=== PATIENT | female | born 1995 | race American Indian/Alaskan Native ===

== ENCOUNTER 2018-02-12 15:06 | Emergency (ER) | payer SELFPAY ==
[2018-02-12] MEDS ORDERED: IBUPROFEN 200 MG TAB PO ONE (18:29)
[2018-02-12 18:30] LABS: Urine Blood TRACE (NEG); Urine Glucose NEGATIVE (NEG); Urine Protein NEGATIVE (NEG); Urine pH 5.5 (5.0-7.0)
[2018-02-12] MEDS ORDERED: HYDROCODONE/APAP 10/325 TAB ONE (18:30)
--- NOTE | 2018-02-12 18:40 | EDPHYS ---
Physician Documentation [facility] Name: Gail Vega Age: 22 yrs Sex: Female : 1995 Arrival Date: 02/12/2018 Time: 15:11 Bed 10 Private MD: ED Physician Jose Deluca HPI: 02/12 17:33 This 22 yrs old Other Female presents to ER via Ambulatory with complaints of Back Pain.kyle 17:33 The patient presents with pain that is acute. The symptoms are located in the low back. kyle Onset: The symptoms/episode began/occurred 1 day(s) ago. The pain radiates to the lumbar area. Associated signs and symptoms: The patient has no apparent associated signs or symptoms. The problem was sustained when bending over, from twisting. Modifying factors: The patient symptoms are alleviated by remaining still, the patient symptoms are aggravated by bending, movement, walking. Severity of symptoms: At their worst the symptoms were moderate, in the emergency department the symptoms are unchanged. The patient has not experienced similar symptoms in the past. BAR STAFF: 15:17 LMP N/A - Irregular menses hj Historical: - Allergies: 15:17 No Known Allergies; hj - Home Meds: 15:17 None [Active]; hj - PMHx: 15:17 None; hj - PSHx: 15:17 None; hj - Immunization history:: Last tetanus immunization: Flu vaccine is up to date. - Family history:: not pertinent. - Social history:: Smoking status: Patient/guardian denies using tobacco. ROS: 17:33 Constitutional: Negative for fever, chills, and weight loss, Eyes: Negative for injury, kyle pain, redness, and discharge, ENT: Negative for injury, pain, and discharge, Neck: Negative for injury, pain, and swelling, Cardiovascular: Negative for chest pain, palpitations, and edema, Respiratory: Negative for shortness of breath, cough, wheezing, and pleuritic chest pain, Abdomen/GI: Negative for abdominal pain, nausea, vomiting, diarrhea, and constipation, : Negative for injury, bleeding, discharge, and swelling, MS/Extremity: Negative for injury and deformity, Skin: Negative for injury, rash, and discoloration, Neuro: Negative for headache, weakness, numbness, tingling, and seizure, Psych: Negative for depression, anxiety, suicide ideation, homicidal ideation, and hallucinations, Allergy/Immunology: Negative for hives, rash, and allergies, Endocrine: Negative for neck swelling, polydipsia, polyuria, polyphagia, and marked weight changes, Hematologic/Lymphatic: Negative for swollen nodes, abnormal bleeding, and unusual bruising. 17:33 Back: Positive for decreased range of motion, pain at rest, of the lumbar area. Exam: 17:33 Constitutional: This is a well developed, well nourished patient who is awake, alert, kyle and in no acute distress. Head/Face: Normocephalic, atraumatic. Eyes: Pupils equal round and reactive to light, extra-ocular motions intact. Lids and lashes normal. Conjunctiva and sclera are non-icteric and not injected. Cornea within normal limits. Periorbital areas with no swelling, redness, or edema. ENT: Nares patent. No nasal discharge, no septal abnormalities noted. Tympanic membranes are normal and external auditory canals are clear. Oropharynx with no redness, swelling, or masses, exudates, or evidence of obstruction, uvula midline. Mucous membranes moist. Neck: Trachea midline, no thyromegaly or masses palpated, and no cervical lymphadenopathy. Supple, full range of motion without nuchal rigidity, or vertebral point tenderness. No Meningismus. Chest/axilla: Normal chest wall appearance and motion. Nontender with no deformity. No lesions are appreciated. Cardiovascular: Regular rate and rhythm with a normal S1 and S2. No gallops, murmurs, or rubs. Normal PMI, no JVD. No pulse deficits. Respiratory: Lungs have equal breath sounds bilaterally, clear to auscultation and percussion. No rales, rhonchi or wheezes noted. No increased work of breathing, no retractions or nasal flaring. Abdomen/GI: Soft, non-tender, with normal bowel sounds. No distension or tympany. No guarding or rebound. No evidence of tenderness throughout. Female : Normal external genitalia. Skin: Warm, dry with normal turgor. Normal color with no rashes, no lesions, and no evidence of cellulitis. MS/ Extremity: Pulses equal, no cyanosis. Neurovascular intact. Full, normal range of motion. Neuro: Awake and alert, GCS 15, oriented to person, place, time, and situation. Cranial nerves II-XII grossly intact. Motor strength 5/5 in all extremities. Sensory grossly intact. Cerebellar exam normal. Normal gait. Psych: Awake, alert, with orientation to person, place and time. Behavior, mood, and affect are within normal limits. 17:33 Back: pain, that is moderate, ROM is painful, normal spinal alignment noted, CVA tenderness, that is mild, muscle spasm, is appreciated in the lumbar area, left low back, left mid back, right mid back and right low back. Vital Signs: 15:17 BP 100 / 71; Pulse 98; Resp 18; Temp 97.7(TE); Pulse Ox 100% on R/A; Weight 113.4 kg; hj Height 5 ft. 4 in. (162.56 cm); Pain 8/10; 19:23 Pulse 95; Resp 18; Pulse Ox 100% on R/A; ao 15:17 Body Mass Index 42.91 (113.40 kg, 162.56 cm) hj MDM: 16:35 Patient medically screened. [facility] 17:34 Data reviewed: vital signs, nurses notes, radiologic studies, plain films. [facility] 02/12 18:12 Order name: Urine Dipstick--Ancillary (enter results); Complete Time: 18:40 02/12 18:12 Order name: Urine --Ancillary (enter results); Complete Time: 18:40 02/12 17:32 Order name: Urine Dipstick-Ancillary (obtain specimen); Complete Time: 18:19 [facility] 02/12 17:32 Order name: Lumbar Spine (3 Views) XRAY [facility] 02/12 17:32 Order name: Urine Test (obtain specimen); Complete Time: 18:19 [facility] Administered Medications: 18:18 Drug: Motrin 600 mg Route: PO; kb1 19:24 Follow up: Response: No adverse reaction ao 18:19 Drug: [place] 10 mg-325 mg 1 tabs Route: PO; kb1 19:24 Follow up: Response: No adverse reaction ao Disposition: 02/12/18 18:40 Discharged to Home. Impression: Low back pain, Obesity, unspecified. - Condition is Stable. - Discharge Instructions: Back Pain, Adult, Musculoskeletal Pain, Obesity, Back Injury Prevention, [id number], Back Pain, Adult, [id number], Obesity, [id number]. - Prescriptions for Ibuprofen 600 mg Oral Tablet - take 1 tablet by ORAL route every 8 hours As needed take with food; 21 tablet. Skelaxin 800 mg Oral Tablet - take 1 tablet by ORAL route every 6 hours As needed; 28 tablet. Tylenol- Codeine #3 300-30 mg Oral Tablet - take 2 tablets by ORAL route every 6 hours As needed; 26 tablet. - Medication Reconciliation Form, Thank You Letter, Antibiotic Education, Prescription Opioid Use, Work release form, Family Work Release form. - Follow up: Private Physician; When: 2 - 3 days; Reason: Recheck today's complaints, Continuance of care, Re-evaluation by your physician. - Problem is new. - Symptoms have improved. Signatures: Dispatcher [employer] EDJose Tyler MD MD cha Joaquin, Henry, RN Dario Rincon RN Yenny Malik RN RN kb1
--- NOTE | 2018-02-12 18:40 | ER ---
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 Transition of care: patient was not received from another setting of care. Onset of symptoms was February 12, 2018. Care prior to arrival: None. 15:15 Method Of Arrival: Ambulatory 15:15 Acuity: AMBERLY 4 hj Triage Assessment: 15:17 General: Appears in no apparent distress. uncomfortable, obese, Behavior is calm, hj cooperative, appropriate for age. Pain: Complains of pain in lumbar area. Musculoskeletal: Circulation, motion, and sensation intact. Capillary refill < 3 seconds. RN ENDOCRINOLOGY: 15:17 LMP N/A - Irregular menses Historical: - Allergies: 15:17 No Known Allergies; hj - Home Meds: 15:17 None [Active]; hj - PMHx: 15:17 None; hj - PSHx: 15:17 None; hj - Immunization history:: Last tetanus immunization: Flu vaccine is up to date. - Family history:: not pertinent. - Social history:: Smoking status: Patient/guardian denies using tobacco. Screenin:17 Abuse screen: Denies threats or abuse. Nutritional screening: No deficits noted. kb1 Tuberculosis screening: No symptoms or risk factors identified. Fall Risk None identified. Assessment: 18:16 Reassessment: Reports that she began to have lower back pain yesterday. General: kb1 Appears in no apparent distress. Behavior is calm, cooperative. Pain: Complains of pain in mid back "right above my butt". Neuro: Level of Consciousness is awake, alert, obeys commands, Oriented to person, place, time, situation. Cardiovascular: Patient's skin is warm and dry. Respiratory: Respiratory effort is even, unlabored, Respiratory pattern is regular, symmetrical. GI: No signs and/or symptoms were reported involving the gastrointestinal system. : No signs and/or symptoms were reported regarding the genitourinary system. Musculoskeletal: Range of motion: intact in all extremities. Injury Description: denies injury. Vital Signs: 15:17 BP 100 / 71; Pulse 98; Resp 18; Temp 97.7(TE); Pulse Ox 100% on R/A; Weight 113.4 kg; hj Height 5 ft. 4 in. (162.56 cm); Pain 8/10; 19:23 Pulse 95; Resp 18; Pulse Ox 100% on R/A; ao 15:17 Body Mass Index 42.91 (113.40 kg, 162.56 cm) ED Course: 15:11 Patient arrived in ED. rg4 15:16 Triage completed. 15:17 Arm band placed on left wrist. 16:35 Jose Deluca MD is Attending Physician. [facility] 17:16 Yenny Leon, RN is Primary Nurse. kb1 18:17 Patient has correct armband on for positive identification. Call light in reach. kb1 sitting in chair, wheels locked. 18:59 Patient moved to radiology via wheelchair. jr1 19:00 Lumbar Spine (3 Views) XRAY In Process Unspecified. EDMS 19:10 Report given to Dario LOPEZ. kb1 19:10 No provider procedures requiring assistance completed. Patient did not have IV access kb1 during this emergency room visit. 19:12 Dario Dale RN is Primary Nurse. ao Administered Medications: 18:18 Drug: Motrin 600 mg Route: PO; kb1 19:24 Follow up: Response: No adverse reaction ao 18:19 Drug: [place] 10 mg-325 mg 1 tabs Route: PO; kb1 19:24 Follow up: Response: No adverse reaction ao Outcome: 18:40 Discharge ordered by . kyle 19:23 Discharged to home ambulatory. ao 19:23 Condition: stable 19:23 Discharge instructions given to patient, Instructed on discharge instructions, follow up and referral plans. Demonstrated understanding of instructions, follow-up care, medications, Prescriptions given X 3. 19:24 Patient left the ED. ao Signatures: Dispatcher [employer] EDMS Jose Deluca MD MD cha Ringgold, Jennifer jr1 Vishnu Handy RN RN Dario Dale RN RN ao Garcia, Rubi 4 Yenny Leon RN RN kb1 Corrections: (The following items were deleted from the chart) 15:20 15:17 Pulse 98bpm; Resp 18bpm; Pulse Ox 100% RA; Temp 97.7F Temporal; 113.4 kg; Height hj 5 ft. 4 in.; BMI: 42.9; Pain 8/10; hj
--- NOTE | 2018-02-12 19:19 | RAD REPORT ---
EXAM DESCRIPTION: RAD - Lumbar Spine 3 Views - 02/12/2018 7:06 pm CLINICAL HISTORY: Back pain FINDINGS: The alignment of the lumbar spine is satisfactory. No fracture or dislocation is seen. No significant bone or joint abnormality seen
== END 2018-02-12 19:24 | disposition home or self-care (01) ==
LOC: ER 15:06
DX: M54.5 Low back pain (principal); E66.9 Obesity, unspecified
CPT/HCPCS: 72100; 81003; 81025; 99283